=== PATIENT | male | born 1990 | race African-American/Black ===

== ENCOUNTER 2019-01-06 02:45 | Emergency (ER) | payer SELFPAY ==
[~2019-01-06] VITALS: Ht 177.8 cm; Wt 90.9 kg
[2019-01-06 04:01] LABS: HEMATOCRIT 50.2 % (42.0-52.0); HEMOGLOBIN 16.6 g/dl (13.5-17.5); MEAN CORPUSCULAR HEMOGLOBIN 29.9 pg (27.0-33.0); MEAN CORPUSCULAR HGB CONC 33.1 g/dl (32.0-36.5); MEAN CORPUSCULAR VOLUME 90.3 fl (80.0-96.0); PLATELET COUNT, AUTOMATED 250 10^3/uL (150-450); RED BLOOD COUNT 5.56 10^6/uL (4.30-6.10); WHITE BLOOD COUNT 16.9 10^3/uL (4.0-10.0)
[2019-01-06 04:31] LABS: BLOOD UREA NITROGEN 20 MG/DL (7-18); CALCIUM LEVEL 9.3 MG/DL (8.5-10.1); CARBON DIOXIDE LEVEL 27 MEQ/L (21-32); CHLORIDE LEVEL 107 MEQ/L (98-107); CK-MB VALUE MASS 1.7 NG/ML (<3.6); CPK CREATINE PHOSPHOKINASE 430 U/L (39-308); GLOMERULAR FILTRATION RATE > 60.0 (>60); GLUCOSE, FASTING 92 MG/DL (70-100); LIPASE 112 U/L (73-393); SODIUM LEVEL 142 MEQ/L (136-145); TROPONIN I < 0.02 NG/ML (< 0.10)
[2019-01-06 04:43] LABS: ATYPICAL LYMPH 6 % (0-5); EOSINOPHILS 2 % (0-3); LYMPHOCYTES 27 % (16-44); MONOCYTES 8 % (0-5); NEUTROPHILS 57 % (28-66)
[2019-01-06 04:44] LABS: PLATELET ESTIMATE NORMAL (NORMAL)
[2019-01-06 04:46] LABS: GIANT PLATELETS 1+
[2019-01-06 06:01] VITALS: BP 126/71
[2019-01-06] MEDS ORDERED: ALBUTEROL 90 MCG/ACT 8GM HFA INHALER INH ONE (06:30)
--- NOTE | 2019-01-06 07:46 | ECGEPIP ---
[facility] [place] - ED Test Date: 2019-01-06 Pat Name: AMBER ARVIZU Department: Room: - Gender: Male Pillow Agent: JONAS : 1990 Requested By: KELSEY Bain Order Number: [id number] Reading MD: Truong Mesa Measurements Intervals [place] Rate: 65 P: 46 IN: 156 QRS: 86 QRSD: 86 T: 59 QT: 368 QTc: 383 Interpretive Statements SINUS RHYTHM BENIGN EARLY REPOLARIZATION NO PRIORS FOR COMPARISON Electronically Signed on 01-06-2019 7:46:25 EST by Truong Mesa
--- NOTE | 2019-01-06 08:12 | REP ---
Chest x-ray: Two views. History: A shortness of breath . Comparison study: No comparison study . Findings: The lungs are well inflated and free of infiltrate. The pleural angles are sharp. The heart size is normal. Pulmonary vasculature is not increased. No significant bony abnormality is seen. EKG monitoring electrodes are visible. Impression: Negative chest x-ray. Electronically Signed by Thor Menendez MD 01/06/2019 08:04 A
== END 2019-01-06 06:25 | disposition home or self-care (01) ==
LOC: M ED 02:45
DX: J45.909 Unspecified asthma, uncomplicated (principal)